=== PATIENT | female | born 1980 | race Caucasian/White ===

== ENCOUNTER 2016-12-20 12:43 | Outpatient (CLI) | payer BC ==
[~2016-12-20] VITALS: Ht 157.5 cm; Wt 61.8 kg
[2016-12-20 13:13] VITALS: BP 108/66; Ht 157.5 cm; Wt 61.8 kg
== END 2016-12-20 14:00 | disposition home or self-care (01) ==
LOC: D.OPS 12:43
DX: O36.0130 Maternal care for anti-D [Rh] antibodies, third trimester, not applicable or unspecified (principal)